=== PATIENT | female | born 1980 | race African-American/Black ===

== ENCOUNTER 2021-01-31 20:29 | Emergency (ER) | payer MEDICARE ==
[~2021-01-31] VITALS: Ht 144.8 cm; Wt 53.5 kg
[2021-02-01] MEDS ORDERED: LORAZEPAM 2MG/ML CPJ IV ONE (00:30)
[2021-02-01] MEDS ORDERED: LIDOCAINE HCL/PF 1% 10 MG/ML 5ML VIAL INFIL ONE (00:30)
[2021-02-01] MEDS ORDERED: ONDANSETRON HCL 4MG/2ML INJ IV ONE (00:30)
[2021-02-01] MEDS ORDERED: MORPHINE SULFATE 4 MG/ML CPJ (NOT FOR IM USE) IV ONE (00:30)
[2021-02-01 01:44] VITALS: BP 145/78
[2021-02-01] MEDS ORDERED: DOXY100C5 MT (02:00)
[2021-02-01] MEDS ORDERED: AMOX1TAB16 MT (02:00)
[2021-02-01] MEDS ORDERED: LACT1.5C MT (02:12)
[2021-02-01] MEDS ORDERED: T3 PO (02:12)
[2021-02-01] MEDS ORDERED: DIF15 MT (02:12)
== END 2021-02-01 02:20 | disposition home or self-care (01) ==
LOC: ER 20:29
DX: N75.1 Abscess of Bartholin's gland (principal); E11.22 Type 2 diabetes mellitus with diabetic chronic kidney disease; I13.11 Hypertensive heart and chronic kidney disease without heart failure, with stage 5 chronic kidney disease, or end stage renal disease; N18.6 End stage renal disease; M19.90 Unspecified osteoarthritis, unspecified site; Z99.2 Dependence on renal dialysis; Z90.710 Acquired absence of both cervix and uterus; Z98.61 Coronary angioplasty status; Z88.0 Allergy status to penicillin
CPT/HCPCS: 56420; 96374; 96375; 99283; J2060; J2270; J2405; J3490; 99284